=== PATIENT | female | born 1945 | race Caucasian/White ===

== ENCOUNTER → 2017-04-05 | Outpatient (CLI) | payer MEDICARE, OTHER ==
--- NOTE | 2017-04-06 13:49 | MM ---
Reason for exam: screening (asymptomatic). Last mammogram was performed 2 years and 6 months ago. History: Patient is postmenopausal. Family history of breast cancer in aunt at age 60. Took estrogen for 3 months. Physical Findings: A clinical breast exam by your physician is recommended on an annual basis and results should be correlated with mammographic findings. MG Screening Mammo w CAD Bilateral CC and MLO view(s) were taken. Prior study comparison: October 05, 2014, bilateral MG screening mammo w CAD. October 03, 2013, bilateral digital screening mammo w/CAD. There are scattered fibroglandular densities. Stable benign calcifications. No significant changes when compared with prior studies. ASSESSMENT: Benign, BI-RAD 2 RECOMMENDATION: Routine screening mammogram of both breasts in 1 year.
== END | disposition home or self-care (01) ==
LOC: RADMAMWWP 14:31
PROVIDERS: ATTEND Family Medicine
DX: Z12.31 Encounter for screening mammogram for malignant neoplasm of breast (principal)

== ENCOUNTER → 2017-04-19 | Outpatient (CLI) | payer MEDICARE, OTHER ==
--- NOTE | 2017-04-20 09:57 | BD ---
EXAMINATION TYPE: MG DEXA axial skeleton. DATE OF EXAM: 04/19/2017 COMPARISON: 09/29/2012 CLINICAL HISTORY: Height: 63.2 IN Weight: 141 LBS FRAX RISK QUESTIONS: Alcohol (3 or more units per day): NO Family History (Parent hip fracture): YES MOTHER Glucocorticoids (More than 3mos): NO (Ex: prednisone, prednisolone, methylprednisolone, dexamethasone, and hydrocortisone). History of Fracture in Adulthood: NO Secondary Osteoporosis: 1. Type 1 Diabetes: NO 2. Hyperthyroidism: NO 3. Menopause before 45: NO AGE 49 4. Malnutrition: NO 5. Chronic liver disease: NO Rheumatoid Arthritis: NO Current Tobacco Use: NO RISK FACTORS HISTORY OF: Family History of Osteoporosis: YES MOTHER Active: YES Diet low in dairy products/other sources of calcium: YES Postmenopausal woman: AGE 49 MEDICATIONS: Osteoporosis Medications: YES Which medication: Actonel How Lon+ YEARS Additional Medications: CALCIUM, VIT D, MAGNESIUM, B COMPLEX, FISH OIL, ACTONEL EXAM MEASUREMENTS: Bone mineral densitometry was performed using the SmartEqu[employer] System. Bone mineral density as measured about the Lumbar spine is: ----- L1-L4(G/cm2): 0.865 T Score Values are as follows: ----- L2: -3.0 ----- L3: -2.4 ----- L4: -2.7 ----- L1-L4: -2.6 Bone mineral density has: Increased 8.8% since study of: 09/29/2012 Bone mineral density about the R hip (g/cm2): 0.856 Bone mineral density about the L hip (g/cm2): 1.035 T Score values are as follows: -----R Neck: -1.3 -----L Neck: 0.0 -----R Total: -1.1 -----L Total: -0.2 Bone mineral density has: % since study of: Bone mineral density about the R Wrist (g/cm2): Bone mineral density about the L Wrist (g/cm2): T Score values are as follows: -----Dist. R+U: -----Prox. R+U: -----Radius total: Bone mineral density has: Increased 8.3% since study of: 09/29/2012 IMPRESSION: Findings compatible with mild osteoporosis. NOTE: T-SCORE=SD OF THE YOUNG ADULT MEAN.
== END | disposition home or self-care (01) ==
LOC: RADBDWWP 14:45
PROVIDERS: ATTEND Family Medicine
DX: M85.80 Other specified disorders of bone density and structure, unspecified site (principal); M81.0 Age-related osteoporosis without current pathological fracture
CPT/HCPCS: 77080

== ENCOUNTER 2018-05-30 13:24 | Inpatient (IN) | payer MEDICARE, OTHER ==
[2018-05-30] MEDS ORDERED: NITROGLYCERIN SL TABS 0.4 MG TAB SUBLINGUAL STA (13:40)
--- NOTE | 2018-05-30 13:50 | ED ---
Chest Pain HPI - General Chief Complaint: Chest Pain Stated Complaint: chest pain Time Seen by Provider: 05/30/18 13:24 Source: patient, RN notes reviewed Mode of arrival: EMS Limitations: no limitations - History of Present Illness Initial Comments: This is a 73-year-old female who states she's been under last stress recently she states she has some stressful news planes of sharp and dull midsternal chest pain and elevated blood pressure. She was given aspirin which did help somewhat patient currently is 4-5/10 severity she states ulcerated to the left shoulder and across the back. She states she had a cardiac workup done about mid summer without much in the way of findings. She's not sure exactly what the consisted of. She was given aspirin by paramedics. No prior history of heart disease she does have a history of stress MD Complaint: chest pain - Related Data Home Medications Medication Instructions Recorded Confirmed Albuterol Inhaler [Ventolin Hfa 2 puff INHALATION RT-BID 05/30/18 05/30/18 Inhaler] Calcium Carbonate [Calcium] 600 ng PO DAILY 05/30/18 05/30/18 Fish Oil/Dha/Epa [Fish Oil 1,200 1 cap PO DAILY 05/30/18 05/30/18 mg Fish Oil] Fluticasone Nasal [place] [Flonase 1 spray EA NOSTRIL DAILY 05/30/18 05/30/18 Nasal [place]] Melatonin 10 mg PO HS 05/30/18 05/30/18 Allergies Allergy/AdvReac Type Severity Reaction Status Date / Time Sulfa (Sulfonamide AdvReac Nausea & Verified 05/30/18 15:09 Antibiotics) Vomiting & Diarrhea Review of Systems ROS Statement: Those systems with pertinent positive or pertinent negative responses have been documented in the HPI. ROS Other: All systems not noted in ROS Statement are negative. EKG Findings - EKG Results: EKG: interpreted by ERMKenny, sinus rhythm (Sinus rhythm rate is 73. Interval 140 QRS duration 72 daily 6 QTC 382/420 anterior lateral changes undetermined age.) Past Medical History Past Medical History: COPD History of Any Multi-Drug Resistant Organisms: None Reported Past Surgical History: Cholecystectomy, Tonsillectomy Past Psychological History: Anxiety Smoking Status: Former smoker Past Alcohol Use History: None Reported Past Drug Use History: None Reported General Exam - General Exam Comments Initial Comments: This is a well-developed well-nourished awake alert oriented 3 female Limitations: no limitations General appearance: alert, in no apparent distress Head exam: Present: atraumatic, normocephalic, normal inspection Eye exam: Present: normal appearance, PERRL, EOMI. Absent: scleral icterus, conjunctival injection, periorbital swelling ENT exam: Present: normal exam, mucous membranes moist Neck exam: Present: normal inspection. Absent: tenderness, meningismus, lymphadenopathy Respiratory exam: Present: normal lung sounds bilaterally. Absent: respiratory distress, wheezes, rales, rhonchi, stridor Cardiovascular Exam: Present: regular rate, normal rhythm, normal heart sounds. Absent: systolic murmur, diastolic murmur, rubs, gallop, clicks GI/Abdominal exam: Present: soft, normal bowel sounds. Absent: distended, tenderness, guarding, rebound, rigid Extremities exam: Present: normal inspection, full ROM, normal capillary refill. Absent: tenderness, pedal edema, joint swelling, calf tenderness Back exam: Present: normal inspection Neurological exam: Present: alert, oriented X3, CN II-XII intact Psychiatric exam: Present: normal affect, normal mood Skin exam: Present: warm, dry, intact, normal color. Absent: rash Course Vital Signs 05/30/18 05/30/18 05/30/18 13:28 13:51 13:56 Temperature 98.1 F Pulse Rate 67 68 74 Respiratory 18 18 18 Rate Blood Pressure 152/88 143/86 O2 Sat by Pulse 96 95 98 Oximetry 05/30/18 05/30/18 05/30/18 14:00 14:30 15:00 Temperature Pulse Rate 73 66 74 Respiratory 20 15 18 Rate Blood Pressure 143/86 138/83 138/83 O2 Sat by Pulse 93 L 95 95 Oximetry - Reevaluation(s) Reevaluation #1: 05/30/18 15:24 Reevaluation the patient minimal discomfort. Reevaluation #2: 05/30/18 15:25 Hematuria from [facility] was obtained by fax EKG was reviewed from 01/31 which showed moderate voltage criteria for LVH nonspecific ST configuration. A repeat EKG was done on this patient showed a sinus rhythm a 72. We'll 150 QRS duration 74 QT since QTC 390/427 septal changes this does appear consistent with the [place] tracing Reevaluation #3: 05/30/18 16:10 Age was seen by cardiology in emergency department she was pain-free on my exam. EKG did seem to normalize to her baseline. Elevated troponin and mildly elevated d-dimer. Chest Pain MDM - MDM Imaging reveals no acute findings. [facility] Patient has a echocardiogram pending. Stress cardiomyopathy is considered along with coronary artery disease. Patient will be admitted I did discuss case both with cardiology and with Dr. Acosta. Critical Care Time Critical Care Time: Yes Critical Care Time: 39 minutes of critical care time which includes initial EMS run and discussed with paramedics history physical labs x-rays multiple reevaluation the patient responsive therapy and to symptom resolution. Discussed with the admitting physician and with cardiology. Admission orders neck mentation the above Disposition Clinical Impression: Acute non-ST segment elevation myocardial infarction (STEMI) following previous myocardial infarction, Chest pain Disposition: ADMITTED IP TO THIS HOSP Condition: Stable Referrals: Keshawn Rosen MD [STAFF PHYSICIAN] - 1-2 days
[2018-05-30 14:08] LABS: Basophils % (A) 1 %; Eosinophils # (A) 0.1 k/uL (0-0.7); Eosinophils % (A) 2 %; HCT 40.7 % (34.0-46.0); HGB 13.8 gm/dL (11.4-16.0); Lymphocytes # (A) 1.2 k/uL (1.0-4.8); Lymphocytes % (A) 18 %; MCH 29.6 pg (25.0-35.0); MCHC 33.8 g/dL (31.0-37.0); MCV 87.5 fL (80.0-100.0); Mean Platelet Volume 7.3; Monocytes # (A) 0.4 k/uL (0-1.0); Monocytes % (A) 6 %; Neutrophils # (A) 5.1 k/uL (1.3-7.7); Neutrophils % (A) 73 %; Platelet Count 252 k/uL (150-450); RBC 4.66 m/uL (3.80-5.40); RDW 12.9 % (11.5-15.5)
--- NOTE | 2018-05-30 14:15 | XR ---
EXAMINATION TYPE: XR chest 1V portable DATE OF EXAM: 05/30/2018 COMPARISON: NONE HISTORY: Pain TECHNIQUE: Single frontal view of the chest is obtained. FINDINGS: There is no focal air space opacity, pleural effusion, or pneumothorax seen. The cardiac silhouette size is within normal limits. The osseous structures are intact. There are overlying car diac leads. Patient is rotated. Prominent lung volumes may be indicative of underlying COPD. IMPRESSION: No acute process.
[2018-05-30 14:23] LABS: ALT 35 U/L (9-52); AST 41 U/L (14-36); Albumin 4.2 g/dL (3.5-5.0); Alkaline Phosphatase 70 U/L (38-126); Amylase 48 U/L (30-110); Anion Gap 9 mmol/L; Blood Urea Nitrogen 17 mg/dL (7-17); Calcium 9.7 mg/dL (8.4-10.2); Carbon Dioxide 24 mmol/L (22-30); Chloride 106 mmol/L (98-107); Glucose 113 mg/dL (74-99); Lipase 85 U/L (23-300); Potassium 4.2 mmol/L (3.5-5.1); Sodium 139 mmol/L (137-145); Total Bilirubin 0.4 mg/dL (0.2-1.3); Total Protein 6.7 g/dL (6.3-8.2)
[2018-05-30 14:29] LABS: Prothrombin Time 9.6 sec (9.0-12.0)
[2018-05-30 14:47] LABS: Creatine Kinase MB 3.6 ng/mL (0.0-2.4)
[2018-05-30 14:48] LABS: D-Dimer 1.14 mg/L FEU (<0.60)
[2018-05-30 14:49] LABS: Partial Thromboplastin Time 21.6 sec (22.0-30.0)
[2018-05-30 15:02] LABS: Troponin I 0.705 ng/mL (0.000-0.034)
[2018-05-30] MEDS ORDERED: HEPARIN SODIUM,PORCINE 5,000 UNIT/ML 1 ML VIAL IV ONE (15:12)
[2018-05-30] MEDS ORDERED: NITROGLYCERIN OINT 1 INCH/GM PACKET TOPICAL STA (15:13)
[2018-05-30] MEDS ORDERED: HEPARIN SOD,PORK IN 0.45% NACL 25,000 UNIT in 0.45% NACL 1 500ML.BAG IV SCH (15:15)
[2018-05-30] MEDS ORDERED: ATORVASTATIN 80 MG TAB PO STA (16:06)
--- NOTE | 2018-05-30 16:07 | P.CRDCN ---
History of Present Illness Consult date: 05/30/18 Requesting physician: Keshawn Rosen Consult reason: non-Q-wave IA Chief complaint: Chest pain History of present illness: This is 73-year-old female with no documented history of hypertension , no diabetes, she states that she used to take cholesterol medication which her physician had stopped over the years. She is a nonsmoker, rare EtOH. She does have history of anxiety. According to the patient, she has been under a considerable amount of stress with an aunt and an uncle not in good health, she states that she was visiting an uncle at [facility] this morning, was spoken to and told by one of her relatives that meeting was being set up to discuss her , this in turn it made her very upset, she states shortly thereafter she developed a sharp chest pain that lead into a pressure type sensation. EMS was called, patient was given sublingual nitroglycerin as well as oxygen, and aspirin. Initial EKG showed a normal sinus rhythm with mild ST-T wave changes noted in the lateral leads. When compared to prior EKG, there was no ST elevation noted in the lateral leads previously. Her blood pressure on arrival here 152/80 with a heart rate in the 60s, 95% on 2 L of oxygen. Blood pressure at the time of my examination 138/82, heart rate in the 70s, 95% on 2 L of oxygen. White blood cell count is normal, hemoglobin 13.8, platelet count 252. D-dimer 1.1, sodium 139, potassium 4.2, BUN 17, creatinine 0.7. Initial troponin came back to be 0.70. We did obtain records from [facility], patient states that she was sent there by her primary care doctor because of symptoms of palpitations. She had an echocardiogram with Doppler study performed there which revealed a normal left ventricular systolic function. EKG performed there at that time showed a normal sinus rhythm with no acute changes. Holter monitor showed predominant sinus rhythm with episodes of atrial tachycardia documented. At the time of our examination in the emergency room, patient continued to complain of some midsternal chest pressure. She was initiated on IV heparin, Nitropaste was given, and patient was also given a dose of Lipitor 80 mg. She was advised by Dr. VC Akhtar in the emergency room to undergo cardiac catheterization, the risks and the benefits were explained to her in detail. We have ordered a stat echocardiogram with Doppler study to be performed. Past Medical History Past Medical History: COPD History of Any Multi-Drug Resistant Organisms: None Reported Past Surgical History: Cholecystectomy, Tonsillectomy Past Psychological History: Anxiety Smoking Status: Former smoker Past Alcohol Use History: None Reported Past Drug Use History: None Reported Medications and Allergies Home Medications Medication Instructions Recorded Confirmed Type Albuterol Inhaler [Ventolin Hfa 2 puff INHALATION RT-BID 05/30/18 05/30/18 History Inhaler] Calcium Carbonate [Calcium] 600 ng PO DAILY 05/30/18 05/30/18 History Fish Oil/Dha/Epa [Fish Oil 1,200 1 cap PO DAILY 05/30/18 05/30/18 History mg Fish Oil] Fluticasone Nasal [place] [Flonase 1 spray EA NOSTRIL DAILY 05/30/18 05/30/18 History Nasal [place]] Melatonin 10 mg PO HS 05/30/18 05/30/18 History Allergies Allergy/AdvReac Type Severity Reaction Status Date / Time Sulfa (Sulfonamide AdvReac Nausea & Verified 05/30/18 15:09 Antibiotics) Vomiting & Diarrhea Physical Exam Vitals: Vital Signs Temp Pulse Resp BP Pulse Ox 05/30/18 15:00 74 18 138/83 95 05/30/18 14:30 66 15 138/83 95 05/30/18 14:00 73 20 143/86 93 L 05/30/18 13:56 74 18 143/86 98 05/30/18 13:51 68 18 152/88 95 05/30/18 13:28 98.1 F 67 18 96 Intake and Output 05/30/18 05/30/18 05/30/18 06:59 14:59 22:59 Other: Weight 68.7 kg PHYSICAL EXAMINATION: GENERAL: 73-year-old female in no acute distress at the time of my examination HEENT: Head is atraumatic, normocephalic. Pupils equal, round. Sclera anicteric. Conjunctiva are clear. Mucous membranes of the mouth are moist. Neck is supple. There is no elevated jugular venous pressure. No carotid bruit is heard. HEART EXAMINATION: Heart S1, S2 normal. No murmur or gallop heard. CHEST EXAMINATION: Lungs are clear to auscultation and precussion. No chest wall tenderness is noted on palpation or with deep breathing. ABDOMEN: Soft, nontender. Bowel sounds are heard. No organomegaly noted. EXTREMITIES: 2+ peripheral pulses with no evidence of peripheral edema and no calf tenderness noted. NEUROLOGIC patient is awake, alert and oriented 3 . Results 05/30/18 13:39 05/30/18 13:39 Cardiac Enzymes 05/30/18 05/30/18 Range/Units 13:39 13:39 AST 41 H (14-36) U/L CK-MB (CK-2) 3.6 H (0.0-2.4) ng/mL Troponin I 0.705 H* (0.000-0.034) ng/mL Coagulation 05/30/18 Range/Units 13:39 PT 9.6 (9.0-12.0) sec APTT 21.6 L (22.0-30.0) sec CBC 05/30/18 Range/Units 13:39 WBC 7.0 (3.8-10.6) k/uL RBC 4.66 (3.80-5.40) m/uL Hgb 13.8 (11.4-16.0) gm/dL Hct 40.7 (34.0-46.0) % Plt Count 252 (150-450) k/uL Comprehensive Metabolic Panel 05/30/18 Range/Units 13:39 Sodium 139 (137-145) mmol/L Potassium 4.2 (3.5-5.1) mmol/L Chloride 106 (98-107) mmol/L Carbon Dioxide 24 (22-30) mmol/L BUN 17 (7-17) mg/dL Creatinine 0.74 (0.52-1.04) mg/dL Glucose 113 H (74-99) mg/dL Calcium 9.7 (8.4-10.2) mg/dL AST 41 H (14-36) U/L ALT 35 (9-52) U/L Alkaline Phosphatase 70 (38-126) U/L Total Protein 6.7 (6.3-8.2) g/dL Albumin 4.2 (3.5-5.0) g/dL Current Medications Generic Name Dose Route Start Last Admin Trade Name Freq PRN Reason Stop Dose Admin Heparin Sodium/Sodium Chloride 500 mls @ 16.48 mls/hr 05/30/18 15:15 15:48 25,000 unit/ Sodium Chloride IV 12 units/kg/hr .Q24H LIAT 16.48 mls/hr Administration Protocol 12 UNITS/KG/HR Intake and Output 05/30/18 05/30/18 05/30/18 06:59 14:59 22:59 Other: Weight 68.7 kg Patient Weight 05/31/18 06:59 Weight 68.7 kg 05/30/18 13:39 05/30/18 13:39 EKG Interpretations (text) EKG shows a normal sinus rhythm with ST-T wave changes noted in the lateral leads Assessment and Plan Plan: Assessment and plan #1 symptoms of fairly sudden onset of midsternal chest discomfort, evidence of EKG changes in the lateral leads, initial troponin 0.7. Clinical picture could represent a non-ST elevation myocardial infarction, cannot rule out the possibility of stress cardiomyopathy. D-dimer 1.1. Recent echocardiogram with Doppler study performed at [place] June showed a normal left ventricular systolic function #2 hyperlipidemia, patient has not been on treatment for this for quite some time. #3 anxiety Plan Patient was initiated on heparin IV, aspirin was given, she was given a dose of the tour 80 mg. Stat echocardiogram with Doppler study has been requested and patient has been advised to undergo cardiac catheterization. The risks and benefits were explained to the patient in detail further recommendations will be based on these findings and the patient's clinical course. DNP note has been reviewed, I agree with a documented findings and plan of care. Patient was seen and examined.
[2018-05-30] MEDS ORDERED: NITROGLYCERIN SL TABS 0.4 MG TAB SUBLINGUAL PRN (16:12)
[2018-05-30] MEDS: SODIUM CHLORIDE 0.9% 1,000 ML IV SCH (16:31)
--- NOTE | 2018-05-30 17:14 | ECHOF ---
Referral Reason:Chest pain MEASUREMENTS -------- HEIGHT: 162.6 cm WEIGHT: 68.5 kg BP: 126/90 IVSd: 0.8 cm (0.6 - 1.1) LVIDd: 4.7 cm (3.9 - 5.3) LVPWd: 0.9 cm (0.6 - 1.1) IVSs: 0.8 cm LVIDs: 4.1 cm LVPWs: 1.1 cm LAESV Index (A-L): 30.81 ml/m Ao Diam: 2.9 cm (2.0 - 3.7) AV Cusp: 1.8 cm (1.5 - 2.6) LA Diam: 3.2 cm (2.7 - 3.8) MV E Ramses: 0.94 m/s MV DecT: 142 ms MV A Ramses: 0.42 m/s MV E/A Ratio: 2.24 RAP: 5.00 mmHg RVSP: 39.27 mmHg MV EF SLOPE: 127.65 mm/s (70 - 150) MV EXCURSION: 1.64 cm (> 18.000) FINDINGS -------- Sinus rhythm. This was a technically good study. The left ventricular size is normal. Left ventricular wall thickness is normal. Overall left vent ricular systolic function is severely impaired with, an EF between 20 - 25 %. Basal Segments Contra cting only. The right ventricle is normal in size and function. LA is midly dilated 29-33ml/m2. The right atrium is normal in size. Aortic valve is trileaflet and is mildly thickened. There is no evidence of aortic regurgitation. There is no evidence of aortic stenosis. The mitral valve leaflets are mildly thickened. There is trace to mild mitral regurgitation. Trace tricuspid regurgitation present. Right ventricular systolic pressure is normal at < 35 mmHg. There is no evidence of pulmonary hypertension. The pulmonic valve was not well visualized. The aortic root size is normal. Normal inferior vena cava with normal inspiratory collapse consistent with estimated right atrial pre ssure of 5 mmHg. There is no pericardial effusion. CONCLUSIONS -------- 1. Sinus rhythm. 2. This was a technically good study. 3. The left ventricular size is normal. 4. Left ventricular wall thickness is normal. 5. Overall left ventricular systolic function is severely impaired with, an EF between 20 - 25 %. 6. Basal Segments Vinayak only. 7. The right ventricle is normal in size and function. 8. LA is midly dilated 29-33ml/m2. 9. Aortic valve is trileaflet and is mildly thickened. 10. The mitral valve leaflets are mildly thickened. 11. There is trace to mild mitral regurgitation. 12. Trace tricuspid regurgitation present. 13. Right ventricular systolic pressure is normal at < 35 mmHg. 14. There is no evidence of pulmonary hypertension. 15. The pulmonic valve was not well visualized. 16. The aortic root size is normal. 17. There is no pericardial effusion. NURSE STAFF INDUSTRIAL: Dinesh Baltazar RDCS
[2018-05-30] MEDS ORDERED: IV FLUID CONTINUATION 950 ML IV ONE (17:37)
[2018-05-30] MEDS ORDERED: fentaNYL (PF) 50 MCG/ML 2 ML AMP ONE (17:44)
[2018-05-30] MEDS ORDERED: LIDOCAINE 1% INJ 10MG/ML (20 ML MDV) ONE (17:44)
[2018-05-30] MEDS ORDERED: VERAPAMIL 2.5 MG/ML 2 ML AMP ONE (17:44)
[2018-05-30] MEDS ORDERED: fentaNYL (PF) 50 MCG/ML 2 ML AMP IV ONE (17:46)
[2018-05-30] MEDS ORDERED: LIDOCAINE 1% INJ 10MG/ML (20 ML MDV) SQ ONE (17:49)
[2018-05-30] MEDS ORDERED: VERAPAMIL SYRINGE (5 MG/10 ML) INTRAARTER ONE (17:51)
[2018-05-30] MEDS ORDERED: HEPARIN SODIUM 1,000 UN/ML (10ML VL) ONE (17:59)
[2018-05-30] MEDS ORDERED: NITROGLYCERIN OINT 1 INCH/GM PACKET TOPICAL SCH (18:00)
[2018-05-30] MEDS ORDERED: CLOPIDOGREL 75 MG TAB ONE ×2 (18:06)
[2018-05-30] MEDS ORDERED: IOPAMIDOL-370 125ML BTL INJ ONE (18:11)
[2018-05-30] MEDS ORDERED: RX INFO: IV CONTRAST WAS GIVEN 1 EACH MISC MISCELLANE PRN (18:13)
[2018-05-30] MEDS ORDERED: CLOPIDOGREL 75 MG TAB PO ONE (18:13)
[2018-05-30] MEDS ORDERED: SODIUM CHLORIDE 0.9% 1,000 ML IV SCH (18:15)
[2018-05-30] MEDS ORDERED: ONDANSETRON 4 MG/2 ML VIAL ONE ×2 (18:34→18:35)
[2018-05-30] MEDS ORDERED: ONDANSETRON 4 MG/2 ML VIAL IVP ONE (18:39)
--- NOTE | 2018-05-30 21:08 | CC ---
CARDIAC CATHETERIZATION REPORT Mrs. Dang is a 73-year-old female with no prior history of cardiac disease or significant her risk factors who today had a stressful situation, did start complaining of chest discomfort, came into the emergency room and her EKG showed ST-segment elevation anteriorly. She was evaluated by Dr. Chava Akhtar. Her troponin was mildly elevated. Because of her presentation, her symptoms, recommendation made regarding cardiac catheterization. The procedure as well as risks and complications were discussed with the patient who is in full understanding and agreement. PROCEDURE: Patient was brought to catholic priest in a fasting state, after receiving fentanyl and Benadryl and achieving moderate conscious sedated state. Using Xylocaine anesthesia and Seldinger technique, a 6-Tristanian sheath was introduced in the right radial artery. Selective right and left angiography performed using 5-Tristanian 3 and half bend right and left Dolores catheter multiple views of the coronary artery including hemiaxial views obtained. Following that 5-Tristanian tight pigtail catheter was introduced in the left ventricle and a 30 degree GONZALEZ view of the left ventricle was obtained. Following that the catheter and sheath was removed. Hemostasis was obtained with deployment of a TR band. There was no immediate complication. Patient is returned to her room in stable condition. Of note, the patient received 2000 units of intravenous heparin. FINDINGS: Left main: This is a large-sized vessel bifurcating into left circumflex, left anterior descending artery, left main coronary artery has no evidence of high-grade stenosis. Left anterior descending artery: This is a large-sized vessel reaching toward the apex with a wraparound apex segment giving rise to a diagonal branch of moderate caliber. The left anterior descending artery as well as branches have no evidence of obstructive coronary artery disease. Left circumflex: This is a small nondominant vessel giving rise to an obtuse marginal branch. The left circumflex as well as branches have no evidence of obstructive coronary artery disease. RIGHT CORONARY ARTERY: This is a large dominant vessel bifurcating distally into PDA and posterolateral segment and branches. The right coronary artery as well as branches have no evidence of obstructive coronary artery disease. LEFT VENTRICULOGRAM: Left ventriculogram was performed in 30 degree GONZALEZ view and revealed an anteroapical and inferoapical akinesis. Ejection fraction is estimated at 20%. There was arrhythmia induced mitral regurgitation. HEMODYNAMICS: There was no gradient across the aortic valve. The left ventricle end-diastolic pressure was 20 mmHg. CONCLUSION: 1. Normal coronary arteries. 2. Severely impaired left ventricular systolic function. Those findings are consistent with takotsubo syndrome. RECOMMENDATIONS: I recommend initiating aggressive treatment for the severe impairment of left ventricular systolic function. Those findings and recommendations were discussed with the patient and her family who are in full understanding and agreement. Duration of procedure is 20 minutes. EUNICE / GEOFFREY: [id number] /
[2018-05-30] MEDS: ALBUTEROL NEBULIZED 2.5 MG/3 ML INHALATION SCH (21:09)
[2018-05-30 21:12] LABS: Creatine Kinase MB 15.3 ng/mL (0.0-2.4)
[2018-05-30 21:16] LABS: Troponin I 6.42 ng/mL (0.000-0.034)
[2018-05-30] MEDS: METOPROLOL TARTRATE 25 MG TAB PO SCH (21:30)
[2018-05-30] MEDS: SPIRONOLACTONE 25 MG TAB PO SCH (21:30)
[2018-05-30] MEDS: MELATONIN 5 MG TABLET PO SCH (21:30)
[2018-05-30] MEDS ORDERED: ONDANSETRON 4 MG/2 ML VIAL IVP PRN (23:41)
--- NOTE | 2018-05-31 06:18 | HP ---
HISTORY AND PHYSICAL CHIEF COMPLAINT: This is a 73-year-old, white female, sharp, midsternal chest pain, elevated hypertension, was given aspirin. Pain was radiating to left shoulder and across her back. She had a heart catheterization in the emergency room due to echo showing severe systolic dysfunction of 20% to 25% ejection fraction. Heart catheterization was done which showed normal coronary arteries, was consistent with stress cardiomyopathy or takotsubo syndrome. HOME MEDICATIONS: 1. Ventolin. 2. Calcium carbonate. 3. Fish oil. 4. Fluticasone. 5. Melatonin. ALLERGIES: SULFA. REVIEW OF SYSTEMS: Fourteen-point review of systems is negative. EKG shows sinus rhythm. PAST MEDICAL HISTORY: COPD; surgeries cholecystectomy and tonsillectomy; anxiety. PHYSICAL EXAMINATION: Stressed white female. Vital signs are stable. CARDIOVASCULAR: S1, S2. LUNGS: Clear. GI: Soft. HEMATOLOGY: Negative Homans. PSYCH: Fair mood and affect. EXTREMITIES: No cyanosis, clubbing, or edema. Cardiology saw her, admitted her to hospital with takotsubo syndrome, stress cardiomyopathy. Current medications were given. Cardiology medicines were ordered. Please see further orders. MMODL / IJN: [id number] /
[2018-05-31 06:40] LABS: Anion Gap 7 mmol/L; Blood Urea Nitrogen 21 mg/dL (7-17); Calcium 8.7 mg/dL (8.4-10.2); Carbon Dioxide 22 mmol/L (22-30); Chloride 106 mmol/L (98-107); Cholesterol 232 mg/dL (<200); Glucose 107 mg/dL (74-99); HDL Cholesterol 79 mg/dL (40-60); LDL Cholesterol,Calculated 132 mg/dL (0-99); Potassium 4.4 mmol/L (3.5-5.1); Sodium 135 mmol/L (137-145); Triglycerides 105 mg/dL (<150)
[2018-05-31 07:07] LABS: Creatine Kinase MB 10.4 ng/mL (0.0-2.4)
[2018-05-31 07:17] LABS: Troponin I 4.55 ng/mL (0.000-0.034)
[2018-05-31] MEDS: ALBUTEROL NEBULIZED 2.5 MG/3 ML INHALATION SCH ×2 (08:06→19:23)
[2018-05-31] MEDS: METOPROLOL TARTRATE 25 MG TAB PO SCH ×2 (08:50→21:57)
[2018-05-31] MEDS: CLOPIDOGREL 75 MG TAB PO SCH (08:50)
[2018-05-31] MEDS: SPIRONOLACTONE 25 MG TAB PO SCH (08:50)
[2018-05-31] MEDS: ASPIRIN 81 MG PO SCH (08:50)
[2018-05-31] MEDS: CALCIUM CARBONATE 500 MG CHEWABLE PO SCH (08:50)
[2018-05-31] MEDS: ATORVASTATIN 40 MG TAB PO SCH (08:50)
[2018-05-31] MEDS ORDERED: NON-FORMULARY DRUG (Fish Oil/Dha/Epa [Fish Oil 1,200 Mg Fish Oil] 1 CAP) PO SCH (09:00)
[2018-05-31] MEDS ORDERED: LISINOPRIL 2.5 MG TAB PO SCH (09:00)
[2018-05-31] MEDS ORDERED: ASPIRIN 325 MG TAB PO SCH (09:00)
[2018-05-31] MEDS ORDERED: LISINOPRIL 2.5 MG TAB PO ONE (11:15)
[2018-05-31] MEDS: FLUTICASONE 50MCG/SPRAY NASAL 16GM EA NOSTRIL SCH (11:20)
--- NOTE | 2018-05-31 12:49 | P.PN ---
Subjective this patient was admitted with the chest pain to the emergency room. EKG showed mild ST segment elevation. Patient underwent a cardiac catheterization and was found to have normal coronary arteries. Since echocardiogram is suggestive for Takasago syndrome. Left ventricular systolic function is severely impaired. Clinically patient is doing well is no evidence of any overt congestive cardiac failure Objective - Vital Signs Vital signs: Vital Signs Temp 98.2 F 05/31/18 11:30 Pulse 74 05/31/18 11:30 Resp 17 05/31/18 11:30 BP 78/45 05/31/18 11:30 Pulse Ox 94 L 05/31/18 11:30 Intake & Output 05/30/18 05/31/18 05/31/18 18:59 06:59 18:59 Intake Total 50 120 Output Total 200 Balance 50 -80 Weight 68.7 kg 66.7 kg Intake: IV 50 Oral 120 Output: Urine 200 Other: Voiding Method Toilet Toilet # Voids 1 3 1 # Emeses 1 - Exam vital signs are reviewed. Patient's vital signs are reviewed. The patient is alert awake and in no acute distress. HEENT negative. Neck-supple no increase in JVP noted no carotid bruits noted. Chest-symmetrical. Heart-first and second heart sounds are normal. No S3 or S4 is noted. No significant murmurs are noted. Lungs bilateral good at entry is noted. No rales or rhonchi are noted Abdomen-soft. Liver and spleen are not enlarged. The bowel sounds are normal. No tenderness noted Extremities-peripheral pulses since are 2+. No significant leg edema noted. Neuro-no significant gross abnormality noted. - Labs CBC & Chem 7: 05/30/18 13:39 05/31/18 05:42 Labs: Abnormal Lab Results - Last 24 Hours (Table) 05/30/18 05/30/18 05/30/18 Range/Units 13:39 13:39 13:39 APTT 21.6 L (22.0-30.0) sec D-Dimer 1.14 H (<0.60) mg/L FEU Sodium (137-145) mmol/L BUN (7-17) mg/dL Glucose 113 H (74-99) mg/dL AST 41 H (14-36) U/L Total Creatine Kinase (30-135) U/L CK-MB (CK-2) 3.6 H (0.0-2.4) ng/mL Troponin I 0.705 H* (0.000-0.034) ng/mL Cholesterol (<200) mg/dL LDL Cholesterol, Calc (0-99) mg/dL HDL Cholesterol (40-60) mg/dL 05/30/18 05/31/18 05/31/18 Range/Units 20:12 05:42 05:42 APTT (22.0-30.0) sec D-Dimer (<0.60) mg/L FEU Sodium 135 L (137-145) mmol/L BUN 21 H (7-17) mg/dL Glucose 107 H (74-99) mg/dL AST (14-36) U/L Total Creatine Kinase 179 H 170 H (30-135) U/L CK-MB (CK-2) 15.3 H 10.4 H (0.0-2.4) ng/mL Troponin I 6.420 H* 4.550 H* (0.000-0.034) ng/mL Cholesterol 232 H (<200) mg/dL LDL Cholesterol, Calc 132 H (0-99) mg/dL HDL Cholesterol 79 H (40-60) mg/dL Assessment and Plan Plan: this patient is a 72 evidence of stress cardiomyopathy. Clinically there is no evidence of congestive cardiac failure. Patient would be ambulated. Sees feeling better she can be discharged home tomorrow.
[2018-05-31] MEDS: SODIUM CHLORIDE 0.9% 1,000 ML IV SCH (21:52)
[2018-05-31] MEDS: MELATONIN 5 MG TABLET PO SCH (21:58)
[2018-05-31 22:46] VITALS: RESP 16
--- NOTE | 2018-06-01 05:58 | PN ---
PROGRESS NOTE SUBJECTIVE: This is a 73-year-old with a STEMI, elevated troponin and broken heart syndrome/stress cardiomyopathy. Anxiety medicine will be ordered for her on discharge. She will be sent home on medications tomorrow. CARDIOVASCULAR: S1, S2. LUNGS: Clear. GI: Soft. HEMATOLOGY: Negative Homans. ASSESSMENT: ST-elevation myocardial infarction, elevated troponin and broken heart syndrome, possible anxiety. Anxiety medications will be given to her. Discussed with her. She wants to think about it 24 hours prior to be being given. MMODL / IJN: [id number] /
[2018-06-01] MEDS: CLOPIDOGREL 75 MG TAB PO SCH (07:40)
[2018-06-01] MEDS: SPIRONOLACTONE 25 MG TAB PO SCH (07:40)
[2018-06-01] MEDS: CALCIUM CARBONATE 500 MG CHEWABLE PO SCH (07:40)
[2018-06-01] MEDS: ATORVASTATIN 40 MG TAB PO SCH (07:40)
[2018-06-01] MEDS: ASPIRIN 81 MG PO SCH (07:40)
[2018-06-01] MEDS: METOPROLOL TARTRATE 25 MG TAB PO SCH (07:40)
[2018-06-01] MEDS: FLUTICASONE 50MCG/SPRAY NASAL 16GM EA NOSTRIL SCH (07:41)
[2018-06-01] MEDS ORDERED: LISINOPRIL 5 MG TAB PO SCH (09:00)
[2018-06-01] MEDS ORDERED: LISINOPRIL 2.5 MG TAB PO SCH (09:00)
[2018-06-01] MEDS: ALBUTEROL NEBULIZED 2.5 MG/3 ML INHALATION SCH (09:02)
--- NOTE | 2018-06-01 10:05 | CDI ---
Last Revision, June 2017 Documentation Clarification Form Date: 06/01/18 From: Vicky Gonzalez RN Admit Date: 05/30/2018 4:14:00 PM Patient Name: Haylee Dang I Visit Number: [id number] ATTENTION: The Clinical Documentation Specialists (CDI) and [facility] Coding Staff appreciate your assistance in clarifying documentation. Please respond to the clarification below the line at the bottom and electronically sign. The CDI & [facility] Coding staff will review the response and follow-up if needed. Please note: Queries are made part of the Legal Health Record. If you have any questions, please contact the author of this message via ITS. Jose Gutiérrez MD Conflicting documentation has been found in the medical record. ED note state "Acute non Stemi". Cardiology consult 05/30 : non ST elevation NV. PN 05/31 states "st elevation myocardial infarction, and broken heart syndrome". History/Risk Factors: COPD, anxiety Clinical Indicators: Patient presented with dull mid-sternal chest pain and elevated b/p EKG: SR Echo: EF 20-25% Cardiac Cath: normal coronary arteries, severely impaired left ventricular systolic function. finding are consistent with takotsubo syndrome. Treatment: Aspirin, Heparin drip, Nitrostat, Nitro Bid Oint Cardiac Cath. In your opinion what is the most clinically appropriate diagnosis for this patient? NSTEMI STEMI Can you please also verify primary diagnosis? NSTEMI STEMI Takotsubo syndrome Other explanation of clinical findings Unable to determine (no explanation for clinical findings) MTDD
[2018-06-01 12:48] VITALS: BP 88/50; PULSE 66; TEMP 97.7
[2018-06-01] MEDS ORDERED: ALPRAZolam 0.5 MG TAB PO PRN (13:07)
--- NOTE | 2018-06-01 15:36 | P.PN ---
Subjective Progress Note Date: 06/01/18 This is 73-year-old female with no documented history of hypertension , no diabetes, she states that she used to take cholesterol medication which her physician had stopped over the years. She is a nonsmoker, rare EtOH. She does have history of anxiety. According to the patient, she has been under a considerable amount of stress with an aunt and an uncle not in good health, she states that she was visiting an uncle at [facility] this morning, was spoken to and told by one of her relatives that meeting was being set up to discuss her , this in turn it made her very upset, she states shortly thereafter she developed a sharp chest pain that lead into a pressure type sensation. EMS was called, patient was given sublingual nitroglycerin as well as oxygen, and aspirin. Initial EKG showed a normal sinus rhythm with mild ST-T wave changes noted in the lateral leads. When compared to prior EKG, there was no ST elevation noted in the lateral leads previously. Her blood pressure on arrival here 152/80 with a heart rate in the 60s, 95% on 2 L of oxygen. Blood pressure at the time of my examination 138/82, heart rate in the 70s, 95% on 2 L of oxygen. White blood cell count is normal, hemoglobin 13.8, platelet count 252. D-dimer 1.1, sodium 139, potassium 4.2, BUN 17, creatinine 0.7. Initial troponin came back to be 0.70. We did obtain records from [facility], patient states that she was sent there by her primary care doctor because of symptoms of palpitations. She had an echocardiogram with Doppler study performed there which revealed a normal left ventricular systolic function. EKG performed there at that time showed a normal sinus rhythm with no acute changes. Holter monitor showed predominant sinus rhythm with episodes of atrial tachycardia documented. At the time of our examination in the emergency room, patient continued to complain of some midsternal chest pressure. She was initiated on IV heparin, Nitropaste was given, and patient was also given a dose of Lipitor 80 mg. She was advised by Dr. VC Akhtar in the emergency room to undergo cardiac catheterization, the risks and the benefits were explained to her in detail. We have ordered a stat echocardiogram with Doppler study to be performed. 05/31/2018 Hermilo was seen and examined this morning, she did undergo cardiac catheterization yesterday which did not reveal any significant obstructive coronary artery disease. Echocardiogram with Doppler study was performed which revealed an ejection fraction of 20-25%, only the basal segments were reggie. Clinical picture suggestive of stress cardiomyopathy. Patient was seen and examined today, overall she's feeling well, blood pressure running in the 80 systolic range. We will continue her ANJEL inhibitor, 2-1/2 mg at noon daily and decrease her beta lori to 12-1/2 mg one tablet by mouth twice a day. From cardiology's perspective, she may be able to be discharged home today. A follow-up appointment will be made with Dr. VC Akhtar in the office post discharge. Objective - Vital Signs Vital signs: Vital Signs Temp 97.7 F 06/01/18 12:00 Pulse 66 06/01/18 12:00 Resp 16 06/01/18 12:00 BP 88/50 06/01/18 12:00 Pulse Ox 93 L 06/01/18 12:00 Intake & Output 05/31/18 06/01/18 06/01/18 18:59 06:59 18:59 Intake Total 600 Output Total 200 Balance 400 Weight 66.5 kg Intake: Oral 600 Output: Urine 200 Other: Voiding Method Toilet Toilet Toilet # Voids 1 1 - Exam PHYSICAL EXAMINATION: GENERAL: 73-year-old female in no acute distress at the time of my examination HEENT: Head is atraumatic, normocephalic. Pupils equal, round. Sclera anicteric. Conjunctiva are clear. Mucous membranes of the mouth are moist. Neck is supple. There is no elevated jugular venous pressure.] bruit is heard. HEART EXAMINATION: Heart S1, S2 normal. No murmur or gallop heard. CHEST EXAMINATION: Lungs are clear to auscultation and precussion. No chest wall tenderness is noted on palpation or with deep breathing. ABDOMEN: Soft, nontender. Bowel sounds are heard. No organomegaly noted. EXTREMITIES: 2+ peripheral pulses with no evidence of peripheral edema and no calf tenderness noted. NEUROLOGIC patient is awake, alert and oriented ?-3. . - Labs CBC & Chem 7: 05/30/18 13:39 05/31/18 05:42 Assessment and Plan Plan: Assessment and plan #1 chest pain, status post cardiac catheterization which did not reveal any significant obstructive coronary artery disease. Abnormal troponins, peaking at 6.4. Echo revealed an ejection fraction of 20-25%, only basal segments are moving. Clinical picture suggesting A stress cardiac myopathy. #2 hyperlipidemia, patient has not been on treatment for this for quite some time. #3 anxiety Plan From cardiology's perspective, we will decrease dose of metoprolol to 12-1/2 mg twice a day and give her ANJEL inhibitor to half milligrams daily at noon. She may be able to be discharged home from our perspective. We will continue aspirin, Plavix, Lipitor 40, and Aldactone along with the beta lori and ANJEL inhibitor. Patient has been educated regarding all medications, and plan of care. Follow-up appointment in the office in one week. DNP note has been reviewed, I agree with a documented findings and plan of care. Patient was seen and examined.
[2018-06-01] MEDS ORDERED: METOPROLOL TARTRATE 12.5 MG TAB PO SCH (21:00)
--- NOTE | 2018-06-07 09:52 | DS ---
DISCHARGE SUMMARY ADDENDUM: DISCHARGE DIAGNOSIS: Broken heart syndrome, Takotsubo disease. MMODL / IJN: [id number] /
== END 2018-06-01 16:51 | disposition home or self-care (01) | DRG 281 ==
LOC: EC 13:24 → 3SCARD 16:14
PROVIDERS: ADMIT Family Medicine; ATTEND Family Medicine
PROC: B2111ZZ Fluoroscopy of Multiple Coronary Arteries using Low Osmolar Contrast (ICD-10-PCS; 2018-05-30)
PROC: B2151ZZ Fluoroscopy of Left Heart using Low Osmolar Contrast (ICD-10-PCS; 2018-05-30)
PROC: 4A023N7 Measurement of Cardiac Sampling and Pressure, Left Heart, Percutaneous Approach (ICD-10-PCS; principal; 2018-05-30 17:37)
DX: I21.4 Non-ST elevation (NSTEMI) myocardial infarction (principal); I47.1 Supraventricular tachycardia; I51.81 Takotsubo syndrome; E78.5 Hyperlipidemia, unspecified; F41.9 Anxiety disorder, unspecified; I25.2 Old myocardial infarction; J44.9 Chronic obstructive pulmonary disease, unspecified; Z87.891 Personal history of nicotine dependence; Z88.2 Allergy status to sulfonamides; Z79.899 Other long term (current) drug therapy
CPT/HCPCS: 36415; 71045; 80048; 80053; 80061; 82150; 82550; 82553; 83690; 83735; 83880; 84484; 85025; 85379; 85610; 85730; 93005; 93306; 93458; 94640; 96365; 96366; 96376; 99291

== ENCOUNTER → 2019-01-03 | Outpatient (CLI) | payer MEDICARE, OTHER ==
--- NOTE | 2019-01-03 13:48 | MM ---
Reason for exam: screening (asymptomatic). Last mammogram was performed 1 year and 9 months ago. History: Patient is postmenopausal. Family history of breast cancer in aunt at age 60. Took estrogen for 3 months. Physical Findings: A clinical breast exam by your physician is recommended on an annual basis and results should be correlated with mammographic findings. MG Screening Mammo w CAD Bilateral CC and MLO view(s) were taken. Prior study comparison: April 05, 2017, bilateral MG screening mammo w CAD. October 05, 2014, bilateral MG screening mammo w CAD. The breast tissue is heterogeneously dense. This may lower the sensitivity of mammography. There are benign appearing vascular calcifications bilaterally. There is no discrete abnormality. ASSESSMENT: Benign, BI-RAD 2 RECOMMENDATION: Routine screening mammogram of both breasts in 1 year.
== END | disposition home or self-care (01) ==
LOC: RADMAMWWP 11:02
PROVIDERS: ATTEND Family Medicine
DX: Z12.31 Encounter for screening mammogram for malignant neoplasm of breast (principal)
CPT/HCPCS: 77067

== ENCOUNTER → 2019-05-16 | Outpatient (CLI) | payer MEDICARE, OTHER ==
--- NOTE | 2019-05-16 11:24 | BD ---
EXAMINATION TYPE: Axial Bone Density DATE OF EXAM: 05/16/2019 COMPARISON: 04.19.2017 CLINICAL HISTORY: 74 YR OLD FEMALE....ICD-10 CODE: M81.0 AGE RELATED OSTEOPOROSIS Height: 63.8 Weight: 144 FRAX RISK QUESTIONS: Family History (Parent hip fracture): YES Glucocorticoids (More than 3mos): YES (Ex: prednisone, prednisolone, methylprednisolone, dexamethasone, and hydrocortisone). RISK FACTORS HISTORY OF: NO FRACTURES AT 52 YR OLD OR MORE Family History of Osteoporosis: YES, HER MOTHER, WITH HIP FX Active: YES Diet low in dairy products/other sources of calcium: YES A BIT LOW Postmenopausal woman: YES, IN HER EARLY 50s Hyperparathyroidism: NO Adrenal Insufficiency: NO MEDICATIONS: Prednisone or other steroids: ASTHMA INHALERS PRN...FOR YRS Osteoporosis Medications: NONE NOW, LAST TAKEN 1 YR AGO Additional Medications: BP MEDS, XANAX, CALCIUM AND VIT D Additional History: HYPERTENSION, ANXIETY, ASTHMA EXAM MEASUREMENTS: Bone mineral densitometry was performed using the [employer] System. Bone mineral density as measured about the Lumbar spine is: ----- L1-L4(G/cm2): 0.902 T Score Values are as follows: ----- L1: -2.2 ----- L2: -2.9 ----- L3: -2.1 ----- L4: -2.2 ----- L1-L4: -2.3 Bone mineral density has: Increased 4.2% since study of: 04.19.2017 Bone mineral density about the R hip (g/cm2): 0.843 Bone mineral density about the L hip (g/cm2): 0.932 T Score values are as follows: -----R Neck: -1.4 -----L Neck: -0.8 -----R Total: -1.3 -----L Total: -0.6 Bone mineral density has: Decreased -3.9% since study of: 04.19.2017 FRA%s: THERE IS A 25.2% CHANCE FOR A MAJOR OSTEOPOROTIC FX AND A 8.7% FOR HIP......PROBABILITY FOR FX IN 10 YRS TIME IMPRESSION: Osteopenia (T Score between -2.5 and -1). There is slightly increased risk of fracture and the patient may be considered for treatment. Re-Screen 2-5 years. NOTE: T-SCORE=SD OF THE YOUNG ADULT MEAN.
== END | disposition home or self-care (01) ==
LOC: RADBDWWP 10:34
PROVIDERS: ATTEND Family Medicine
DX: M85.88 Other specified disorders of bone density and structure, other site (principal)
CPT/HCPCS: 77080

== ENCOUNTER → 2019-10-03 | Outpatient (CLI) | payer MEDICARE, OTHER ==
--- NOTE | 2019-10-12 17:01 | ECHOF ---
Referral Reason:I42.9 cardiomyopathy MEASUREMENTS -------- HEIGHT: 162.6 cm WEIGHT: 66.2 kg BP: RVIDd: 3.3 cm (< 3.3) IVSd: 1.5 cm (0.6 - 1.1) LVIDd: 3.8 cm (3.9 - 5.3) LVPWd: 1.4 cm (0.6 - 1.1) IVSs: 1.8 cm LVIDs: 1.7 cm LVPWs: 1.8 cm LAESV Index (A-L): 22.68 ml/m Ao Diam: 2.3 cm (2.0 - 3.7) AV Cusp: 1.4 cm (1.5 - 2.6) MV EXCURSION: 15.387 mm (> 18.000) MV EF SLOPE: 59 mm/s (70 - 150) EPSS: 0.3 cm MV E Ramses: 0.82 m/s MV DecT: 216 ms MV A Ramses: 0.92 m/s MV E/A Ratio: 0.89 RAP: 5.00 mmHg RVSP: 33.01 mmHg FINDINGS -------- Sinus rhythm. This was a technically adequate study. The left ventricular size is normal. There is moderate concentric left ventricular hypertrophy. O verall left ventricular systolic function is normal with, an EF between 55 - 60 %. The diastolic fi lling pattern is normal for the age of the patient 13.83. The right ventricle is normal in size. Normal LA size by volume 22+/-6 ml/m2. The right atrial size is normal. Interatrial and interventricular septum intact. The aortic valve is trileaflet and appears structurally normal. There is no evidence of aortic regu rgitation. There is no evidence of aortic stenosis. There is trace mitral regurgitation. Mild tricuspid regurgitation present. There is borderline pulmonary artery hypertension. The righ t ventricular systolic pressure, as measured by Doppler, is 33.01mmHg. There is no pulmonic regurgitation present. The aortic root size is normal. IVC Not well visulized. There is no pericardial effusion. CONCLUSIONS -------- 1. Sinus rhythm. 2. This was a technically adequate study. 3. The left ventricular size is normal. 4. There is moderate concentric left ventricular hypertrophy. 5. Overall left ventricular systolic function is normal with, an EF between 55 - 60 %. 6. The diastolic filling pattern is normal for the age of the patient 13.83 7. The right ventricle is normal in size. 8. Normal LA size by volume 22+/-6 ml/m2. 9. The right atrial size is normal. 10. Interatrial and interventricular septum intact. 11. The aortic valve is trileaflet and appears structurally normal. 12. There is no evidence of aortic regurgitation. 13. There is no evidence of aortic stenosis. 14. There is trace mitral regurgitation. 15. Mild tricuspid regurgitation present. 16. There is borderline pulmonary artery hypertension. 17. The right ventricular systolic pressure, as measured by Doppler, is 33.01mmHg. 18. There is no pulmonic regurgitation present. 19. The aortic root size is normal. 20. IVC Not well visulized. 21. There is no pericardial effusion. [employer]ATING [employer]ER: Estelle Chacon RDCS
== END | disposition home or self-care (01) ==
LOC: RADECHMAIN 13:55
PROVIDERS: ATTEND Family Medicine
DX: I07.1 Rheumatic tricuspid insufficiency (principal)
CPT/HCPCS: 93306

== ENCOUNTER → 2021-01-21 | Outpatient (CLI) | payer MEDICARE, OTHER ==
--- NOTE | 2021-01-21 13:29 | XR ---
EXAMINATION TYPE: XR chest 2V DATE OF EXAM: 01/21/2021 COMPARISON: 05/30/2018 HISTORY: COPD TECHNIQUE: Frontal and lateral views of the chest are obtained. FINDINGS: Heart size is within normal limits. No focal consolidation, pneumothorax or pleural effusi on. Biapical pleural/parenchymal thickening and/or scarring. Coarse interstitial markings are likely chronic. Hyperaeration lungs and flattening of the diaphragms suggestive COPD. Osteopenia and degener ative changes of the thoracic spine. IMPRESSION: 1. No acute pulmonary disease. 2. COPD.
== END | disposition home or self-care (01) ==
LOC: RADXRMAIN 12:52
PROVIDERS: ATTEND Family Medicine
DX: J44.9 Chronic obstructive pulmonary disease, unspecified (principal)
CPT/HCPCS: 71046

== ENCOUNTER → 2021-10-30 | Outpatient (CLI) | payer MEDICARE ==
--- NOTE | 2021-10-31 06:05 | BD ---
EXAMINATION TYPE: Axial Bone Density DATE OF EXAM: 10/30/2021 COMPARISON: 2019 CLINICAL HISTORY: 76 years year old Female. ICD-10 CODE: Z78.0 POST MENOPAUSAL WITHOUT HRT Height: 5 FT 2 1/4 IN Weight: 131 FRAX RISK QUESTIONS: Alcohol (3 or more units per day): NO Family History (Parent hip fracture): YES Glucocorticoids (More than 3mos): NO (Ex: prednisone, prednisolone, methylprednisolone, dexamethasone, and hydrocortisone). History of Fracture in Adulthood: YES Secondary Osteoporosis: 1. Type 1 Diabetes: NO 2. Hyperthyroidism: NO 3. Menopause before 45: AROUND THERE 4. Malnutrition: NO 5. Chronic liver disease: NO Rheumatoid Arthritis: NO Current Tobacco Use: NO RISK FACTORS HISTORY OF: Surgery to Spine/Hip(right/left)/Wrist (right/left): NO Family History of Osteoporosis: YES Active: YES Diet low in dairy products/other sources of calcium: NO Postmenopausal woman: YES Take estrogen and/or progesterone medications: NO 2 inches in height since high school: YES Frequent falls: NO Poor Health: GOOD Hyperparathyroidism: NO Adrenal Insufficiency: NO MEDICATIONS: Additional Medications: LISINOPRIL, HEART MEDS, XANAX, Additional History: COPD EXAM MEASUREMENTS: Bone mineral densitometry was performed using the [employer] System. Bone mineral density as measured about the Lumbar spine is: ----- L1-L4(G/cm2): 0.913 T Score Values are as follows: ----- L1: -2.3 ----- L2: -3.1 ----- L3: -2.0 ----- L4: -1.7 ----- L1-L4: -2.2 Bone mineral density has: INCREASED 2.0 % SINCE STUDY OF 2018 Bone mineral density about the R hip (g/cm2): 0.853 Bone mineral density about the L hip (g/cm2): 0.939 T Score values are as follows: -----R Neck: -1.3 -----L Neck: -0.7 -----R Total: -1.6 -----L Total: -0.6 Bone mineral density has: DECREASED -2.7 % SINCE STUDY 2018 FRAX%s: The graph provided illustrates a 26.3 % for a major osteoporotic fx and a 13.4 % for the hips probability for fx in 10 years time. IMPRESSION: Osteopenia (T Score between -2.5 and -1). There is slightly increased risk of fracture and the patient may be considered for treatment. Re-Screen 2-5 years. NOTE: T-SCORE=SD OF THE YOUNG ADULT MEAN.
== END | disposition home or self-care (01) ==
LOC: RADBDWWP 12:12
PROVIDERS: ATTEND Family Medicine
DX: M85.89 Other specified disorders of bone density and structure, multiple sites (principal); Z78.0 Asymptomatic menopausal state
CPT/HCPCS: 77080

== ENCOUNTER → 2021-10-30 | Outpatient (CLI) | payer MEDICARE ==
--- NOTE | 2021-10-31 12:16 | MM ---
Reason for exam: screening (asymptomatic). Last mammogram was performed 2 years and 10 months ago. History: Patient is postmenopausal. Family history of breast cancer in aunt at age 60. Took estrogen for 3 months. Physical Findings: A clinical breast exam by your physician is recommended on an annual basis and results should be correlated with mammographic findings. MG 3D Screening Mammo W/Cad Bilateral CC and MLO view(s) were taken. Prior study comparison: January 03, 2019, bilateral MG screening mammo w CAD. April 05, 2017, bilateral MG screening mammo w CAD. There are scattered fibroglandular densities. There are benign appearing round, vascular calcifications bilaterally. There is chronic nodularity in the left breast. There is no discrete abnormality. ASSESSMENT: Benign, BI-RAD 2 RECOMMENDATION: Routine screening mammogram of both breasts in 1 year.
== END | disposition home or self-care (01) ==
LOC: RADMAMWWP 12:08
PROVIDERS: ATTEND Family Medicine
DX: Z12.31 Encounter for screening mammogram for malignant neoplasm of breast (principal); Z78.0 Asymptomatic menopausal state; Z80.3 Family history of malignant neoplasm of breast
CPT/HCPCS: 77063; 77067

== ENCOUNTER → 2022-01-28 | Outpatient (CLI) | payer MEDICARE ==
--- NOTE | 2022-01-28 12:15 | XR ---
EXAMINATION TYPE: XR shoulder complete BILAT DATE OF EXAM: 01/28/2022 CLINICAL HISTORY: Bilateral pain. TECHNIQUE: 2 views of the bilateral shoulders are obtained. COMPARISON: None. FINDINGS: Osseous structures are somewhat demineralized. There is no acute fracture/dislocation evid ent in either shoulder. Mild narrowing with mild to moderate spurring acromioclavicular joint. Mild t o moderate narrowing and spurring left acromioclavicular joint. Glenohumeral joints are maintained bi laterally. Distal acromion morphology unremarkable bilaterally. The visualized ribs are intact bilat erally. IMPRESSION: As above.
--- NOTE | 2022-01-28 12:17 | XR ---
EXAMINATION TYPE: XR cervical spine limited, XR thoracic spine 2V DATE OF EXAM: 01/28/2022 TECHNIQUE: Frontal, lateral, swimmers, and open mouth view of the cervical spine are obtained. Fronta l and lateral views of the thoracic spine. HISTORY: [id number] neck and back pain COMPARISON: None FINDINGS: The cervical spine is visualized in its entirety from C1 thru the top of T1 level, there i s grade 1 retrolisthesis C3 on C4 and C4 on C5. The pre-vertebral soft tissue appears within normal limits. The C1-C2 articulation is suboptimally evaluated on attempted open mouth view due to osseous overlap. Vertebral body heights are maintained. Mild disc space narrowing and spurring at C6-C7 leve l. Thoracic spine shows satisfactory alignment without evidence of acute fracture or dislocation. Verteb ral body heights are maintained. Mild multilevel disc space narrowing with mild to moderate anterior spurring in the midthoracic spine is present. Visualized ribs are intact bilaterally. Cholecystectomy clips are incidentally noted. IMPRESSION: As above.
== END | disposition home or self-care (01) ==
LOC: RADXRMAIN 11:05
PROVIDERS: ATTEND Family Medicine
DX: M60.811 Other myositis, right shoulder (principal); M19.012 Primary osteoarthritis, left shoulder; M50.323 Other cervical disc degeneration at C6-C7 level
CPT/HCPCS: 72040; 72070

== ENCOUNTER → 2022-11-06 | Outpatient (CLI) | payer OTHER ==
--- NOTE | 2022-11-06 20:16 | CA ---
Transthoracic Echo Report Name: Haylee Dang Age: 77 Gender: F : 1945 Exam Date: 11/06/2022 12:28 Exam Location: [facility] Ht (in): 65 Wt (lb): 135 Ordering Physician: Jose Butler MD Attending/Referring Phys: Second Hand [employer] Gale Go RDCS Procedure CPT: Indications: I50.20 Cardiac Hx: Technical Quality: Good Contrast 1: Total Dose (mL): Contrast 2: Total Dose (mL): MEASUREMENTS (Male / Female) Normal Values 2D ECHO LV Diastolic Diameter PLAX 3.6 cm 4.2 - 5.9 / 3.9 - 5.3 cm LV Systolic Diameter PLAX 2.5 cm IVS Diastolic Thickness 1.1 cm 0.6 - 1.0 / 0.6 - 0.9 cm LVPW Diastolic Thickness 1.1 cm 0.6 - 1.0 / 0.6 - 0.9 cm LV Relative Wall Thickness 0.6 RV Internal Dim ED PLAX 2.9 cm LA Systolic Diameter LX 3.3 cm 3.0 - 4.0 / 2.7 - 3.8 cm LV Diastolic Volume MOD 4C 44.8 cm??? LV Systolic Volume MOD 4C 14.8 cm??? LV Ejection Fraction MOD 4C 67.1 % LV Diastolic Length 4C 7.7 cm LV Systolic Length 4C 6.8 cm LV Diastolic Volume MOD 2C 72.2 cm??? LV Systolic Volume MOD 2C 36.5 cm??? LV Ejection Fraction MOD 2C 49.5 % LV Diastolic Length 2C 7.6 cm LV Systolic Length 2C 6.5 cm LA Volume 44.6 cm??? 18 - 58 / 22 - 52 cm??? M-MODE Aortic Root Diameter MM 3.1 cm MV E Point Septal Separation 0.5 cm AV Cusp Separation MM 2.0 cm DOPPLER AV Peak Velocity 143.1 cm/s AV Peak Gradient 8.2 mmHg MV Area PHT 3.7 cm??? Mitral E Point Velocity 88.5 cm/s Mitral A Point Velocity 89.6 cm/s Mitral E to A Ratio 1.0 MV Deceleration Time 204.1 ms TR Peak Velocity 255.0 cm/s TR Peak Gradient 26.0 mmHg Right Ventricular Systolic Press 36.0 mmHg FINDINGS Left Ventricle Left ventricular ejection fraction is estimated at 60-65 %. Small left ventricular cavity. Mildly increased septal wall thickness. Mildly increased posterior wall thickness. Right Ventricle Normal right ventricular size and function. Mild pulmonary hypertension. Right Atrium Normal right atrial size. Left Atrium Normal left atrial size. Mitral Valve Structurally normal mitral valve. Mild mitral regurgitation. Aortic Valve Trileaflet aortic valve. No aortic valve stenosis or regurgitation. Tricuspid Valve Structurally normal tricuspid valve. Mild tricuspid regurgitation. Pulmonic Valve Structurally normal pulmonic valve. Trace pulmonic regurgitation. Pericardium Normal pericardium. No pericardial effusion. Aorta Normal size aortic root and proximal ascending aorta. CONCLUSIONS LVH with preserved systolic function Septal bulge Previewed by: Dr. Stan Martin MD (Electronically Signed) Final Date: 06 November 2022 20:15
== END | disposition home or self-care (01) ==
LOC: RADECHMAIN 12:23
PROVIDERS: ATTEND Family Medicine
DX: I50.20 Unspecified systolic (congestive) heart failure (principal)
CPT/HCPCS: 93306

== ENCOUNTER → 2022-11-17 | Outpatient (CLI) | payer OTHER ==
[~2022-11-17] MED LIST: REGADENOSON 0.4 MG/5 ML SYRINGE IV PRN
--- NOTE | 2022-11-17 13:19 | CA ---
Lexiscan Nuclear Stress Test Report Name: Haylee Dang Exam Date: 11/17/2022 10:24 Exam Location: [place] [facility] Ht (in): 65 Wt (lb): 136 BSA: 1.68 Ordering Phys: Jose Butler MD Referring Phys: BEVERLY,, Technologist: LUIS FERNANDO,, Age: 77 Gender: F : 1945 Procedure CPT: Indications: sent ICD-10 Codes: Patient History: chest pain Medications: Meds past 24 hrs: Pretest Chest Pain: STRESS TEST Lexiscan Protocol Exercise Duration (min:sec): 02:[address] Depressions (mm): Angina Score: Gomes Score: Resting HR (bpm): 52 Peak HR (bpm): 87 Resting BP (mmHg): 151 / 78 Peak BP (mmHg): 187 / 91 MPHR: 145 Target HR: 123 % MPHR: 60 METS: 1.0 Total Dose: Peak Dose: Atropine: Double Product: 20377 BP Response: Stress Termination: Infusion complete Stress Symptoms: Nausea and vomiting Stress Summary: ECG ANALYSIS Resting ECG: Sinus rhythm. Normal conduction. No arrhythmias. Normal repolarization. Stress ECG: No ECG changes from baseline with Lexiscan infusion. CONCLUSIONS No ECG evidence of ischemia with Lexiscan infusion. Nuclear test results to follow. Dr. Britney Guajardo MD (Electronically Signed) Final Date: 17 Nov 2022 13:19
--- NOTE | 2022-11-18 09:00 | NM ---
EXAMINATION TYPE: NM stress lexiscan cardiolite DATE OF EXAM: 11/17/2022 COMPARISON: NONE CLINICAL INDICATION: Female, 77 years old with history of I50.20; TECHNIQUE: After the intravenous administration of 24 mCi Tc 99m Sestamibi - Cardiolite resting SPEC T images acquired 60 minutes post injection. The patient received 0.4mg Lexiscan, 9.1 mCi Tc 99m Sestamibi - Stress images obtained 40 minutes pos t injection FINDINGS: Review of stress and rest SPECT images demonstrates decreased perfusion along the anteroseptal wall e specially in the mid to basal anteroseptal wall. However, this is more pronounced on rest images. Fin dings suggest attenuation artifact. Otherwise, no distinct reversibility is seen. Gated analysis show s normal wall motion with an estimated left ventricular ejection fraction of 61 %. TID this calculat ed at 0.97, within normal limits. IMPRESSION: Suspect body wall attenuation artifact along the mid to basal anteroseptal wall as the perfusion abno rmality is larger on rest. No scintigraphic evidence for reversible ischemia.
== END | disposition home or self-care (01) ==
LOC: RADNMMAIN 08:30
PROVIDERS: ATTEND Family Medicine
DX: I50.20 Unspecified systolic (congestive) heart failure (principal); R07.9 Chest pain, unspecified
CPT/HCPCS: 78452; 93017

== ENCOUNTER → 2023-01-13 | Outpatient (CLI) | payer MEDICARE, OTHER ==
--- NOTE | 2023-01-13 15:32 | MM ---
Reason for Exam: Screening (asymptomatic). Last mammogram was performed 1 year(s) and 2 month(s) ago. Patient History: Menarche at age 16. First Full-Term at age 26. Postmenopausal. Estrogen for 3 months until age 42. Maternal aunt had breast cancer, age 60. Risk Values: Stacie 5 year model risk: 1.4%. NCI Lifetime model risk: 3.1%. Prior Study Comparison: 04/05/2017 Bilateral Screening Mammogram, [facility]. 01/03/2019 Bilateral Screening Mammogram, [facility]. 10/30/2021 Bilateral Screening Mammogram, [facility]. Tissue Density: There are scattered fibroglandular densities. Findings: Analyzed By CAD. There is no suspicious group of microcalcifications or new suspicious mass in either breast. Overall Assessment: Negative, BI-RAD 1 Management: Screening Mammogram of both breasts in [address] [facility] will attempt to contact patient to return for supplemental views and ultrasound if indicated. Patient should continue monthly self-breast exams. A clinical breast exam by your physician is recommended on an annual basis. This exam should not preclude additional follow-up of suspicious palpable abnormalities. Note on Stacie scores and lifetime risk: 1. A Stacie score greater than 3% is considered moderate risk. If this is the case, consider specialist referral to assess eligibility for a risk reducing agent. 2. If overall lifetime risk for the development of breast cancer is 20% or higher, the patient may qualify for future screening with alternating mammogram and breast MRI. Electronically signed and approved by: Chapin Zaman DO
== END | disposition home or self-care (01) ==
LOC: RADMAMWWP 11:24
PROVIDERS: ATTEND Family Medicine
DX: Z12.31 Encounter for screening mammogram for malignant neoplasm of breast (principal); Z78.0 Asymptomatic menopausal state; Z80.3 Family history of malignant neoplasm of breast
CPT/HCPCS: 77063; 77067

== ENCOUNTER → 2023-02-24 | Outpatient (CLI) | payer OTHER ==
--- NOTE | 2023-02-24 16:11 | NM ---
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 Immediate images and 3 hours post injection images acquired. FINDINGS: Delayed scan at the right foot shows focal intense activity in the region of the medial talar dome li wai corresponding to the OCD seen on MRI. Additional activity along the dorsolateral midfoot also pr esent to a lesser degree on the left side likely on a degenerative basis. There is a similar focus of activity in the contralateral left ankle echoes represent injury to the t ibiotalar joint on that side as well. Pool images show increased activity right tibiotalar joint and to a lesser degree left tibiotalar norah nt. No significant asymmetric increased tracer activity on flow images. IMPRESSION: 1. Intense focal activity at the right tibiotalar joint likely corresponding to the OCD seen on MRI. 2. Similar but smaller focus of activity on the contralateral side could reflect ankle injury here as well. Consider radiographic correlation. 3. Some symmetric increased activity along the dorsolateral midfoot regions likely on a degenerative basis. 4. No scintigraphic evidence for osteomyelitis.
== END | disposition home or self-care (01) ==
LOC: RADNMMAIN 10:28
PROVIDERS: ATTEND Family Medicine
DX: M89.571 Osteolysis, right ankle and foot (principal)
CPT/HCPCS: 78315; A9503

== ENCOUNTER → 2024-02-01 | Outpatient (CLI) | payer MEDICARE ==
--- NOTE | 2024-02-01 16:14 | CT ---
EXAMINATION TYPE: CT chest wo con DATE OF EXAM: 02/01/2024 COMPARISON: None HISTORY: rul pain CT DLP: 202.[address] of the chest was performed with lung and mediastinal window settings submitted. The la ck of contrast limits evaluation of the vascular, mediastinal and parenchymal structures including th e upper abdomen. LUNGS: The lungs are clear and free of infiltrate. No atelectasis. No pulmonary nodule or mass is de tected. No pleural effusion. Mild basilar bronchiectasis. Biapical scarring noted. MEDIASTINUM/ROQUE: Thoracic aorta is of normal caliber with limited evaluation given lack of contrast . The heart is not enlarged. No evidence for mediastinal mass. No lymph nodes greater than 1cm. UPPER ABDOMEN: No significant abnormality is seen. OTHER: No significant other abnormality. IMPRESSION: 1. Mild basilar bronchiectasis. Biapical scarring noted.
== END | disposition home or self-care (01) ==
LOC: RADCTMAIN 10:11
PROVIDERS: ATTEND Family Medicine
DX: R07.9 Chest pain, unspecified (principal); J47.9 Bronchiectasis, uncomplicated; I50.20 Unspecified systolic (congestive) heart failure
CPT/HCPCS: 71250

== ENCOUNTER → 2024-09-15 | Outpatient (CLI) | payer MEDICARE ==
--- NOTE | 2024-09-15 15:34 | XR ---
EXAMINATION TYPE: XR chest 2V DATE OF EXAM: 09/15/2024 12:19 PM COMPARISON: 01/21/2021 CLINICAL INDICATION: Female, 79 years old with history of F44.9 COPD F45.50 PERS ASTHMA, TECHNIQUE: XR chest 2V view(s) obtained. FINDINGS: The heart size is normal. The pulmonary vasculature is normal. The lungs are clear. IMPRESSION: 1. No acute pulmonary process. [facility], , 09/15/2024 3:32 PM
[2024-09-15 18:46] LABS: Immunoglobulin E 11.4 IU/mL (0.00-114.00)
== END | disposition home or self-care (01) ==
LOC: LABWHC1 11:22
PROVIDERS: ATTEND Internal Medicine Sleep Medicine
DX: J44.9 Chronic obstructive pulmonary disease, unspecified (principal); J45.50 Severe persistent asthma, uncomplicated
CPT/HCPCS: 36415; 71046; 82103; 82104; 82785; 86001; 86003; 86606; 86609